=== PATIENT | female | born 1990 | race Caucasian/White ===

== ENCOUNTER 2020-03-24 13:01 | Observation (INO) | payer SELFPAY ==
[2020-03-24] VITALS (13 sets, daily range): BP systolic 125–147; BP diastolic 78–91; PULSE 85–103; RESP 16–20; TEMP 36.7–36.9; O2SAT 94–99; BMI 25.6
--- NOTE | 2020-03-24 14:25 | ED.ABDPAIN ---
HPI - Abdominal Pain General Chief Complaint: Abdominal Pain Stated Complaint: Pancreatitis Time Seen by Provider: 03/24/20 14:01 Source: patient Mode of arrival: Ambulatory Limitations: no limitations History of Present Illness HPI narrative: Patient is a 29-year-old female with history of insulin-dependent diabetes and pancreatitis visiting from [place] presenting with abdominal pain ongoing for the last 3 days. She denies any nausea or vomiting but has epigastric and right upper quadrant pain. She is tolerating fluid and food. She denies any change in bowel habits. She feels like her abdomen is bloated. This is actually her 3rd or 4th flare-up in the last 5 weeks. Last year they talked about cholecystectomy at that time she had cholelithiasis however instead put her on statin. She denies any alcohol use. MD complaint: abdominal pain Onset (ago): day(s) (3) Pain Consistency: constant Location: epigastric Related Data Allergies Allergy/AdvReac Type Severity Reaction Status Date / Time cefaclor [From Ceclor] Allergy Rash Verified 03/24/20 15:23 ciprofloxacin [From Cipro] Allergy Rash Verified 03/24/20 15:23 Review of Systems Review of Systems Narrative: GENERAL: Denies chills, fatigue, malaise, fever, sweats, travel HEENT: Denies sinus pain, ear pain, sore throat, difficulty swallowing, neck pain RESPIRATORY: Denies dyspnea, cough, wheezing, hemoptysis, sputum. CARDIOVASCULAR: Denies chest pain, palpitations, orthopnea, edema GASTROINTESTINAL: See HPI : Denies dysuria, frequency, incontinence, hematuria, urinary retention, flank pain. MUSCULOSKELETAL: Denies weakness, joint pain, or bony pain SKIN: No rash, no erythema, no pruritus NEUROLOGIC: Denies weakness, dizziness, headache, numbness, change in speech, confusion PSYCHIATRIC: No concerning psychosocial issues. 12 point review of systems is negative except for those stated above and HPI Patient History Medical History Diabetes (Acute) Pancreatitis (Acute) Exam Initial Vital Signs Initial Vital Signs: Vital Signs Temperature 98.2 F 03/24/20 13:59 Pulse Rate 103 H 03/24/20 13:59 Respiratory Rate 20 03/24/20 13:59 Blood Pressure 129/88 03/24/20 13:59 Pulse Oximetry 99 03/24/20 13:59 GENERAL: Well-appearing, well-nourished and in no acute distress. HEENT: Head atraumatic,EOMI, pupils reactive, face symmetric, moist mucous membranes CARDIOVASCULAR: Regular rate and rhythm without murmurs, rubs or gallops. RESPIRATORY: Breath sounds equal bilaterally, no wheezes rales or rhonchi. ABDOMEN: Soft, nontender. Normoactive bowel sounds all 4 quadrants. No guarding or rebound. EXTREMITIES: Normal range of motion, no clubbing or edema. Neurovascularly intact NEUROLOGICAL: Alert and oriented x4.Normal gait and speech. SKIN: Warm, dry, no laceration, no petechiae, no rashes or lesions. Course Orders Ordered: ED Orders 03/24/20 14:19 Complete Blood Count AUTO DIFF Stat Comprehensive Metabolic Panel Stat Lipase Stat 03/24/20 15:08 US abdomen limited Stat Sodium Chloride (Normal Saline 0.9%) 1,000 mls @ 1,000 mls/hr IV CONT NOAH Last Infusion: 03/24/20 15:42 Dose: 0 mls/hr Documented by: Admin: 03/24/20 14:50 Dose: 1,000 mls/hr Documented by: AB Discontinued Medications Hydromorphone HCl (Dilaudid) 0.5 mg IV NOW ONE Stop: 03/24/20 16:11 Last Admin: 03/24/20 16:35 Dose: 0.5 mg Documented by: AB Morphine Sulfate (Morphine) 4 mg IV NOW ONE Stop: 03/24/20 14:29 Last Admin: 03/24/20 14:49 Dose: 4 mg Documented by: AB Ondansetron HCl (Zofran) 4 mg IV NOW ONE Stop: 03/24/20 14:02 Last Admin: 03/24/20 14:49 Dose: 4 mg Documented by: AB Vital Signs Vital signs: Vital Signs - 8 hr 03/24/20 13:59 03/24/20 14:57 03/24/20 14:58 Temperature 98.2 F Pulse Rate 103 H 90 89 Respiratory Rate 20 Blood Pressure 129/88 141/90 H Pulse Oximetry 99 96 96 03/24/20 15:00 03/24/20 15:30 03/24/20 16:00 Temperature Pulse Rate 89 87 85 Respiratory Rate Blood Pressure 137/84 147/91 H 133/84 Pulse Oximetry 94 95 94 03/24/20 16:30 Temperature Pulse Rate 86 Respiratory Rate Blood Pressure 125/82 Pulse Oximetry 95 MDM - Abdominal Pain Lab Data Attestation: I reviewed the patient's lab results. Result diagrams: 03/24/20 14:19 03/24/20 14:19 Labs: Lab Results 03/24/20 03/24/20 Range/Units 14:19 14:19 WBC 13.4 H (4.5-11.0) X10^3/uL RBC 4.43 (4.0-5.2) X10^6/uL Hgb 13.4 (12.0-16.0) g/dL Hct 40.3 (36-46) % MCV 91.0 (80-100) fL MCH 30.4 (26-34) PG MCHC 33.4 (30-36) % RDW 13.9 (11.6-14.8) % Plt Count 290 (150-400) X10^3/uL Neut % (Auto) 69.2 (50-75) % Lymph % (Auto) 21.3 L (25-40) % [place] % (Auto) 5.1 (3-14) % Eos % (Auto) 3.1 (2-4) % Baso % (Auto) 1.3 (0-2) % Neut # (Auto) 9300 H (9748-0940) /uL Lymph # (Auto) 2800 (7787-4379) /uL [place] # (Auto) 700 (0-900) /uL Eos # (Auto) 400 (0-450) /uL Baso # (Auto) 200 H (0-100) /uL Sodium 139 (137-145) mmol/L Potassium 4.1 (3.4-5.1) mmol/L Chloride 103 (98-107) mmol/L Carbon Dioxide 29 (22-32) mmol/L BUN 24 H (7-17) mg/dL Creatinine 1.13 H (0.52-1.04) mg/dL Estimated GFR 56.2 L (>60) mL/min BUN/Creatinine Ratio 21.2 (6-22) Glucose 142 H (70-100) mg/dL Calcium 9.3 (8.4-10.2) mg/dL Total Bilirubin 0.4 (0.2-1.3) mg/dL AST 24 (14-36) IU/L ALT 18 (<35) IU/L Alkaline Phosphatase 156 H (38-126) U/L Total Protein 7.3 (6.3-8.2) g/dL Albumin 3.9 (3.5-5.0) g/dL Globulin 3.4 (1.7-4.1) g/dL Albumin/Globulin Ratio 1.1 (1.0-2.8) Lipase 1545 H (23-300) U/L Point of care testing: Point of Care Testing Test Results Negative Urine Dip Bedside Urine Glucose 1000 mg/dl Bedside Urine Bilirubin - Negative Bedside Urine Ketone - Negative Urine Specific [place] 1.015 Bedside Urine Occult Blood - Negative Bedside Urine pH 7 Bedside Urine Protein ++ 100 Bedside Urine Urobilinogen +/- 1mg Bedside Urine Nitrite - Negative Bedside Urine Leukocytes - Negative Esterase Imaging Data US - abdomen: Radiologist's Impression: PROCEDURE: US ABDOMEN LIMITED INDICATIONS: PANCREATITIS TECHNIQUE: Real-time focused scanning was performed of the abdomen, with image documentation. COMPARISON: None. FINDINGS: The liver is prominent in size and demonstrates no focal lesions. The liver demonstrates normal echogenicity. The main portal vein is patent and demonstrates normal size. Normal appearing hepatopetal flow can be seen. No findings of gallstones or sludge are seen. The gallbladder wall is not thickened, measuring 3 mm or less. No specific pericholecystic fluid is seen. The sonographic Ceron sign is negative. There is no biliary dilatation, the common bile duct measures 5 mm. The visualized pancreas is unremarkable. The body and the tail of the pancreas are not well seen. IMPRESSION: The pancreas is overall not well seen. If there are strong clinical concerns for complications of pancreatitis, please consider dedicated pancreatitis protocol CT for further evaluation. Dictated by: Jacinto Alves M.D. on 03/24/2020 at 15:16 MDM Narrative Medical decision making narrative: Patient is found to have pancreatitis with lipase of 1500. She has required multiple doses of pain medication but is not having any nausea or vomiting. Dr. curiel updated patient's symptoms test results and agrees with observation Discharge Plan Departure Patient Disposition: Admitted as Observation Clinical Impression: Pancreatitis Qualifiers: Chronicity: acute Pancreatitis type: unspecified pancreatitis type Acute pancreatitis complication: unspecified Qualified Code(s): K85.90 - Acute pancreatitis without necrosis or infection, unspecified Admit Date/Time: 03/24/20 16:51 Admit Provider: Keny Curiel
[2020-03-24 14:36] LABS: Add Manual Diff / Slide Review NO; Basophils Absolute Auto 200 /uL (0-100); Basophils Percent Auto 1.3 % (0-2); Eosinophils Absolute Auto 400 /uL (0-450); Eosinophils Percent Auto 3.1 % (2-4); Hematocrit 40.3 % (36-46); Hemoglobin 13.4 g/dL (12.0-16.0); Lymphocytes Absolute Auto 2800 /uL (1100-4500); Lymphocytes Percent Auto 21.3 % (25-40); Mean Corpuscular HGB Conc 33.4 % (30-36); Mean Corpuscular Hemoglobin 30.4 PG (26-34); Monocytes Absolute Auto 700 /uL (0-900); Monocytes Percent Auto 5.1 % (3-14); Neutrophils Absolute Auto 9300 /uL (1500-7000); Neutrophils Percent Auto 69.2 % (50-75); Platelet Count 290 X10^3/uL (150-400); Red Blood Cell Count 4.43 X10^6/uL (4.0-5.2); Red Cell Distribution Width 13.9 % (11.6-14.8); White Blood Cell Count 13.4 X10^3/uL (4.5-11.0)
[2020-03-24 14:41] LABS: Alanine Aminotransferase 18 IU/L (<35); Albumin 3.9 g/dL (3.5-5.0); Albumin Globulin Ratio 1.1 (1.0-2.8); Alkaline Phosphatase 156 U/L (38-126); Aspartate Aminotransferase 24 IU/L (14-36); BUN Creatinine Ratio 21.2 (6-22); Bilirubin Total 0.4 mg/dL (0.2-1.3); Blood Urea Nitrogen 24 mg/dL (7-17); Calcium 9.3 mg/dL (8.4-10.2); Carbon Dioxide 29 mmol/L (22-32); Chloride 103 mmol/L (98-107); Estimated Glomerular Filt Rate 56.2 mL/min (>60); Globulin 3.4 g/dL (1.7-4.1); Glucose 142 mg/dL (70-100); HEMOLYSIS < 15 (0-50); Lipase 1545 U/L (23-300); Potassium 4.1 mmol/L (3.4-5.1); Sodium 139 mmol/L (137-145); Total Protein 7.3 g/dL (6.3-8.2)
[2020-03-24] MEDS: MORPHINE 4 MG/ML INJ IV (14:49)
[2020-03-24] MEDS: ONDANSETRON 4 MG/2 ML INJ IV (14:49)
[2020-03-24] MEDS: SODIUM CHLORIDE 0.9% 1,000 ML 1000 ML IV (14:50)
--- NOTE | 2020-03-24 15:08 | DI.US.S_ITS ---
PROCEDURE: US ABDOMEN LIMITED INDICATIONS: PANCREATITIS TECHNIQUE: Real-time focused scanning was performed of the abdomen, with image documentation. COMPARISON: None. FINDINGS: The liver is prominent in size and demonstrates no focal lesions. The liver demonstrates normal echogenicity. The main portal vein is patent and demonstrates normal size. Normal appearing hepatopetal flow can be seen. No findings of gallstones or sludge are seen. The gallbladder wall is not thickened, measuring 3 mm or less. No specific pericholecystic fluid is seen. The sonographic Ceron sign is negative. There is no biliary dilatation, the common bile duct measures 5 mm. The visualized pancreas is unremarkable. The body and the tail of the pancreas are not well seen. IMPRESSION: The pancreas is overall not well seen. If there are strong clinical concerns for complications of pancreatitis, please consider dedicated pancreatitis protocol CT for further evaluation. Dictated by: Jacinto Alves M.D. on 03/24/2020 at 15:16 Approved by: Jacinto Alves M.D. on 03/24/2020 at 15:18
[2020-03-24] MEDS: HYDROMORPHONE 0.5 MG INJ IV (16:35)
--- NOTE | 2020-03-24 17:22 | PM.HP.1 ---
History of Present Illness History of Present Illness Date Patient Seen: 03/24/20 Time Patient Seen: 16:30 Date of Onset of Symptoms: 03/22/20 Chief complaint: Pancreatitis Narrative: Patient is a 29-year-old female with history of recurrent pancreatitis, longstanding type 1 diabetes, hypertension, dyslipidemia/hyperlipidemia, diabetic neuropathy, glaucoma presents to the emergency department with acute episode of upper abdominal pain starting 2 days ago. Patient resides in [place] and visiting her family here. Patient states her abdominal pain is typical of past episodes of pancreatitis. It is epigastric and radiates to the sides and back. She denies nausea, vomiting, chest pain, fever or chills. Patient was previously told that her pancreatitis is due to elevated cholesterol. Her 1st episode was in 2009 and she has had 7 episodes prior this current one. However, this is her 3rd episode in the past 5 or 6 weeks. Patient states she typically comes into the hospital and improves rapidly and able to be discharged the following day. At 1 point she had gallstones but states the gallstones were not seen on ultrasound last year. She states she has been compliant with her insulin and her oral medications. She states her last A1c was 9.9%. She is on multiple antihypertensives as well as fenofibrate and atorvastatin for cholesterol. On ER evaluation, patient had stable vital signs. Labs were notable for mild leukocytosis WBC 13.4 without left shift, BUN 24, creatinine 1.13, normal electrolytes. She has elevated lipase 1545, bilirubin 0.4, AST and ALT normal, alk-phos minimally elevated 156. She was provided pain control, NS 1 L bolus, ondansetron in the ED. Patient History Medical History (Updated 03/24/20 @ 17:29 by Keny Curiel MD) Glaucoma (Acute) Hyperlipidemia (Acute) Hypertension (Acute) Peripheral neuropathy (Acute) Recurrent acute pancreatitis (Acute) Type 1 diabetes (Acute) Meds Home Medications and Allergies Allergies Allergy/AdvReac Type Severity Reaction Status Date / Time cefaclor [From Ceclor] Allergy Rash Verified 03/24/20 15:23 ciprofloxacin [From Cipro] Allergy Rash Verified 03/24/20 15:23 Review of Systems Review of Systems ROS: Yes All systems reviewed with the patient and are negative except as otherwise documented Exam Vital Signs (past 8 hours): - 03/24/20 13:59 03/24/20 14:57 03/24/20 14:58 Temperature 98.2 F Pulse Rate 103 H 90 89 Respiratory Rate 20 Blood Pressure 129/88 141/90 H Pulse Oximetry 99 96 96 03/24/20 15:00 03/24/20 15:30 03/24/20 16:00 Temperature Pulse Rate 89 87 85 Respiratory Rate Blood Pressure 137/84 147/91 H 133/84 Pulse Oximetry 94 95 94 03/24/20 16:30 03/24/20 17:00 Temperature Pulse Rate 86 91 H Respiratory Rate Blood Pressure 125/82 143/91 H Pulse Oximetry 95 98 Oxygen Delivery Method Room Air Narrative Exam Narrative: General: Alert and cooperative well-developed well-nourished female in some abdominal distress HEENT: Normocephalic atraumatic, pupils equal Neck: Supple without lymphadenopathy Lungs: Clear to auscultation Heart: Normal S1 and S2, regular rate and rhythm, no murmur Abdomen: Soft, tender in epigastric with mild guarding, no HSM Extremities: No edema Neurological: Sensorium intact, nonfocal Objective Labs Result Diagrams: 03/24/20 14:19 03/24/20 14:19 Labs: Laboratory Results - last 24 hr 03/24/20 03/24/20 14:19 14:19 WBC 13.4 H RBC 4.43 Hgb 13.4 Hct 40.3 MCV 91.0 MCH 30.4 MCHC 33.4 RDW 13.9 Plt Count 290 Neut % (Auto) 69.2 Lymph % (Auto) 21.3 L [place] % (Auto) 5.1 Eos % (Auto) 3.1 Baso % (Auto) 1.3 Neut # (Auto) 9300 H Lymph # (Auto) 2800 [place] # (Auto) 700 Eos # (Auto) 400 Baso # (Auto) 200 H Sodium 139 Potassium 4.1 Chloride 103 Carbon Dioxide 29 BUN 24 H Creatinine 1.13 H Estimated GFR 56.2 L BUN/Creatinine Ratio 21.2 Glucose 142 H Calcium 9.3 Total Bilirubin 0.4 AST 24 ALT 18 Alkaline Phosphatase 156 H Total Protein 7.3 Albumin 3.9 Globulin 3.4 Albumin/Globulin Ratio 1.1 Lipase 1545 H Assessment & Plan Assessment & Plan narrative: Patient is a 29-year-old female with history of recurrent pancreatitis, longstanding type 1 diabetes, hypertension, dyslipidemia/hyperlipidemia, diabetic neuropathy, glaucoma presents to the emergency department with acute episode of upper abdominal pain starting 2 days ago. 1. Acute recurrent pancreatitis, present on admission, active -patient has typical pain consistent with prior episodes of pancreatitis with elevated lipase -ultrasound exam: No gallstones, gallbladder thickening or bile duct dilatation -NS 150 cc/hour -full liquid diet -hydromorphone 0.5-1 mg IV q.2 hours as needed -check triglycerides 2. Type 1 diabetes with peripheral neuropathy -historically poor control, admit glucose 142 -patient uses Levemir 20 units b.i.d., NovoLog 4-6 units with meals on sliding scale -continue long-acting and mealtime insulin coverage and sliding scale -continue gabapentin 400 mg t.i.d. for neuropathy -check hemoglobin A1c 3. Hypertension -continue amlodipine 10 mg q.d., lisinopril 40 mg q.d., metoprolol tartrate 25 mg b.i.d. per home routine 4. Hyperlipidemia -check lipid panel -continue atorvastatin 80 mg HS and fenofibrate 54 mg q.d. per home routine 5. Esophageal reflux -continue omeprazole or equivalent 20 mg q.d. per home routine Code status: Full code DVT prophylaxis: SCDs Patient admitted to hospital observation based on her presentation and history of rapid improvement with prior episodes of pancreatitis.
[2020-03-24 17:28] LABS: HDL Cholesterol 63 mg/dL (40-60); Triglycerides 433 mg/dL (35-150)
[2020-03-24 17:36] LABS: COVID19 -Nasal RAPID Negative (Negative)
[2020-03-24 17:41] LABS: Hemoglobin A1C% w Est Avg Glu 11.8 % (4.0-6.0)
[2020-03-24 17:52] LABS: Cholesterol 413 mg/dL (140-199)
[2020-03-24] MEDS: ACETAMINOPHEN 325 MG TABLET 650 MG PO (17:52)
[2020-03-24] MEDS: HYDROMORPHONE 1 MG INJ IV (17:52)
[2020-03-24] MEDS: SODIUM CHLORIDE 0.9% 1,000 ML 150 ML IV (17:53)
--- NOTE | 2020-03-24 18:23 | PC.NURSE ---
1730 Patient arrived on unit in stable condition via wheelchair. Acute pancreatitis. Patient is here visiting family from [place]. Current pain level is 8/10, administered hydromorphone as ordered. IVF NS running at 150mL/h, tolerating well. The patient has been oriented to the unit and has no further questions at this time.
[2020-03-24 18:46] LABS: Pregnancy Test Serum,Qual Negative (Negative)
[2020-03-24] MEDS: KETOROLAC 30 MG/ML VIAL IV (19:35)
[2020-03-24] MEDS: ATORVASTATIN 20 MG TABLET 80 MG PO (20:40)
[2020-03-24] MEDS: METOPROLOL IR 25 MG TABLET PO (20:40)
[2020-03-24] MEDS: GABAPENTIN 400 MG CAPSULE PO (20:41)
[2020-03-24] MEDS: HYDROMORPHONE 0.5 MG INJ 1 MG IV (20:49)
[2020-03-25] VITALS (9 sets, daily range): BP systolic 101–153; BP diastolic 61–86; PULSE 66–91; RESP 16–18; TEMP 36.5–37.1; O2SAT 92–95
[2020-03-25] MEDS: SODIUM CHLORIDE 0.9% 1,000 ML 150 ML IV ×2 (01:04→09:34)
[2020-03-25] MEDS: HYDROMORPHONE 0.5 MG INJ 1 MG IV ×3 (01:04→09:34)
[2020-03-25] MEDS: ACETAMINOPHEN 325 MG TABLET 650 MG PO (03:38)
[2020-03-25] MEDS: PANTOPRAZOLE 20 MG TABLET PO (06:24)
[2020-03-25] MEDS: FENOFIBRATE 48 MG TABLET PO (08:19)
[2020-03-25] MEDS: GABAPENTIN 400 MG CAPSULE PO ×2 (08:19→14:13)
[2020-03-25] MEDS: SODIUM CHLORIDE 0.9% FLUSH 10 ML IV (08:20)
[2020-03-25] MEDS: METOPROLOL IR 25 MG TABLET PO (08:23)
[2020-03-25] MEDS: lisinopriL 20 MG TABLET 40 MG PO (08:23)
[2020-03-25] MEDS: AMLODIPINE 5 MG TABLET 10 MG PO (08:24)
[2020-03-25] MEDS: KETOROLAC 30 MG/ML VIAL IV (08:25)
[2020-03-25] MEDS: INSULIN GLARGINE 100 UNIT/ML 3ML PEN 20 UNIT SUBCUT (08:34)
[2020-03-25] MEDS: INSULIN ASPART 100 UNIT/ML INSULN PEN SUBCUT ×3 (08:35→12:15)
--- NOTE | 2020-03-25 11:13 | CM.DANOTE ---
Patient is a 29 year old female who was admitted on 03/24/20 for Pancreatitis. Pt has [place] out of [place] for insurance and her PCP is out of state as well. EMR was reviewed. Per MD, pt with hx of diabetes and pancreatitis and admitted for treatment of recurrent pancreatitis. Pt currently getting IV pain meds but switching to oral to confirm pain well managed with oral medication and will advance her diet to confirm she can tolerate as pt still having abdominal pain. SW met bedside with pt and MD during rounding and pt confirms that she has less pain and agreeable to attempt oral percocet to confirm she can tolerate. RN to bring in breakfast to see how pt tolerates general diet. Pt confirms that she lives in [place] and is here visiting her family. Pt is independent at baseline and does not use equipment to ambulates and feels her diabetes is well controlled. Pt has had recurrent flareup of pancreatitis which she typically recovers quickly. Pt has plane ticket back to [place] for tomorrow and is therefore anxious to stabilize in order to d/c by this evening as she states she cannot miss her flight home and aware that if she still has pain then would likely need to be admitted to the hospital again in [place]. Plan: SW to follow closely for change to oral pain medication and general diet to determine if pt can tolerate both towards her goal of d/c this evening in order to make her flight home to [place] tomorrow. KULWINDER Tony Discharge Planning/Care Management CM Discharge Assessment Start: 03/25/20 11:11 Freq: Status: Active Protocol: Document 03/25/20 11:11 BF (Rec: 03/25/20 11:13 [id number]) Discharge Planning Assessment Assigned Accountant Certified Public KULWINDER Farrell DPOA/Assigned Designee Name none Advance Directives? No Advance Directives on File No History Provided By Patient,Medical Record Has Patient been admitted in last 30 No days? Prior Living Arrangements House Household Members family,friend(s) Type of transporation used prior to Drives own vehicle admit Independent with ADL's Yes Is patient alert and oriented? Yes Caregiver for Another No Barriers to Discharge No Discharge Plan Home Transportation Arrangement Local family can provide transport home when stable Referrals Initiated None needed Review Status In Process Please Provide Date Initial DC 03/25/20 Assessment Was Performed Next Review Type Continued Stay Review
[2020-03-25] MEDS: OXYCODONE/ACETAMINOPHEN 5/325 TABLET 2 TAB PO (12:35)
--- NOTE | 2020-03-25 16:29 | PC.NURSE ---
Dr Case in room to see patient, DC orders written. IV removed from left wrist. Denies pain or other concerns at time of nurse assessment. DC paperwork reviewed with her by Carolee DUNNE, pt assisted via wheelchair to hospital entrance where she stated her mother is picking her up.
--- NOTE | 2020-03-25 16:58 | PC.NURSE ---
Discharge Note On discharge assessment it was charted that patient had medication sent to pharmacy for safe keeping. No patient medication in pharmacy or safe on floor. This RN called patient to verify patient medication per chart. Patient stated that upon admission she thought she had her home medication with her other belongings but she had actually left it at home.
--- NOTE | 2020-03-26 07:59 | P.DS_ITS ---
History of Present Illness History of Present Illness Date Patient Seen: 03/25/20 Chief complaint: Pancreatitis Narrative: Patient is a 29-year-old female with history of recurrent pancreati tis, longstanding type 1 diabetes, hypertension, dyslipidemia/hyperlipidemia, diabetic neuropathy, glaucoma presents to the emergency department with acute episode of upper abdominal pain starting 2 days ago. Patient resides in [place] and visiting her family here. Patient states her abdominal pain is typical of past episodes of pancreatitis. It is epigastric and radiates to the sides and back. She denies nausea, vomiting, chest pain, fever or chills. Patient was previously told that her pancreatitis is due to elevated cholesterol. Her 1st episode was in 2009 and she has had 7 episodes prior this current one. However, this is her 3rd episode in the past 5 or 6 weeks. Patient states she typically comes into the hospital and improves rapidly and able to be discharged the following day. At 1 point she had gallstones but states the gallstones were not seen on ultrasound last year. She states she has been compliant with her insulin and her oral medications. She states her last A1c was 9.9%. She is on multiple antihypertensives as well as fenofibrate and atorvastatin for choles terol. On ER evaluation, patient had stable vital signs. Labs were notable for mild leukocytosis WBC 13.4 without left shift, BUN 24, creatinine 1.13, normal electrolytes. She has elevated lipase 1545, bilirubin 0.4, AST and ALT normal, alk-phos minimally elevated 156. She was provided pain control, NS 1 L bolus, ondansetron in the ED. Discharge Providers Provider Date of admission: 03/24/20 16:51 Discharge Date: 03/25/20 Discharge provider: Brisa Case MD Summary Hospital Course Discharge Diagnosis: 1. Acute pancreatitis 2. Type 1 diabetes 3. Hyperlipidemia 4. Hypertension Hospital Course: Patient was admitted to the hospital for recurrent pancreatitis. She developed abrupt onset abdominal pain. Triglycerides were elevated at 400. Cholesterol was around 250. The patient was placed on IV fluids and pain medications. The following day her diet was advanced. She did have some minimal abdominal pain but was able to advance her diet and tolerated without vomiting or significant pain. 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 We discussed given her recurrent episodes of pancreatitis consideration of GI consultation when she returns. The patient was anxious to leave the hospital as she is flying back to [place] on Wednesday. Patient clinically made significant improvement and was deemed appropriate for discharge home. Status at Discharge Cognitive/behavioral status at discharge: oriented Functional status at discharge: independent ambulation Overall status at discharge: patient is back to baseline Time Spent with Patient Time spent: Less than 30 minutes Exam Vital Signs (past 8 hours): Oxygen Delivery Method Room Air Oxygen Flow Rate 0 Narrative Exam Narrative: Pleasant female in no acute distress Lungs clear to auscultation Cardiac exam: Regular rate and rhythm normal S1-S2 Abdomen: Soft, mildly tender to palpation, no rebound tenderness no board-like rigidity Extremities: No edema Objective Labs Result Diagrams: 03/24/20 14:19 03/24/20 14:19 Discharge Assessment & Plan Assessment and Plan Assessment: 1. Acute pancreatitis 2. Hyperlipidemia 3. Type 1 diabetes 4. Hypertension Plan of Treatment: Discharge home Follow-up with PCP upon return to floor Discharge Plan Discharge Plan Patient Disposition: Home Discharge orders & Medications Prescriptions: Continued Levemir FlexTouch U-100 Insuln 100 unit/mL (3 mL) Insulin Pen 20 unit SUBCUT BID RF: 0 insulin aspart U-100 [Novolog Flexpen U-100 Insulin] 100 unit/mL (3 mL) Insulin Pen 4 unit SUBCUT TIDWMEAL RF: 0 gabapentin 400 mg Capsule 400 mg PO TID RF: 0 amlodipine 10 mg Tablet 10 mg PO DAILY RF: 0 lisinopril 40 mg Tablet 40 mg PO DAILY RF: 0 metoprolol tartrate 25 mg Tablet 25 mg PO BID RF: 0 atorvastatin 80 mg Tablet 80 mg PO BEDTIME RF: 0 fenofibrate 54 mg Tablet 54 mg PO DAILY RF: 0 omeprazole 20 mg Capsule,Delayed Release(Dr/Ec) 20 mg PO DAILY RF: 0 Diet/Activity/Treatments Diet: Diet as Tolerated and Carb-consistent/Diabetic Skin/Wound/Dressing Care Report to your healthcare provider any signs of infection, such as:: increased pain Visit Report/Discharge Packet Instructions: Acute Pancreatitis, DI for Pancreatitis Visit Report Forms: Patient Portal/API, Stroke Signs & Symptoms Discharge Data Attending Provider: Keny Curiel Admit Date/Time: 03/24/20 16:51 Discharges patient from system. Discharge Date/Time: 03/25/20 16:30
== END 2020-03-25 16:30 | disposition home or self-care (01) ==
LOC: ED 16:30 → AC 16:53
PROVIDERS: Admitting Provider Internal Medicine; Emergency Provider Emergency Medicine; Referring Provider Emergency Medicine; Visit Provider Internal Medicine
DX: K85.90 Acute pancreatitis without necrosis or infection, unspecified (principal); R10.13 Epigastric pain; E10.41 Type 1 diabetes mellitus with diabetic mononeuropathy; Z79.4 Long term (current) use of insulin; I10 Essential (primary) hypertension; E78.5 Hyperlipidemia, unspecified; H40.9 Unspecified glaucoma; K21.9 Gastro-esophageal reflux disease without esophagitis; Z11.59 Encounter for screening for other viral diseases
CPT/HCPCS: 36415; 76705; 80053; 80061; 81003; 81025; 82962; 83036; 83690; 84703; 85025; 87635; 96361; 96372; 96374; 96375; 96376; 99284; G0378; J1170; J1885; J2270; J2405